=== PATIENT | male | born 1940 | race Caucasian/White ===

== ENCOUNTER 2018-07-27 10:25 | Outpatient (CLI) | payer MEDICAID, MEDICARE ==
[2018-07-27 18:32] LABS: HB2 TOTAL 12.4 g/dL; HEMOGLOBIN A1C 0.59 g/dL; HEMOGLOBIN A1C % 6.5 % (4.6-6.2)
[2018-07-27 19:55] LABS: CREATININE,URINE 105.5 mg/dL; MICROALBUM/CREATININE RATIO,UR 118.5 ug/mg (<30.0); MICROALBUMIN,URINE 12.5 mg/dL (0-300.0)
== END 2018-07-27 10:26 | disposition home or self-care (01) ==
LOC: LAB.F 10:25
PROVIDERS: ATTEND Family Medicine
DX: E11.9 Type 2 diabetes mellitus without complications (principal)
CPT/HCPCS: 36415; 82043; 82570; 83036

== ENCOUNTER 2018-12-19 15:02 | Outpatient (CLI) | payer MEDICARE ==
[2018-12-19 18:43] LABS: ALBUMIN 3.7 g/dL (3.2-5.5); CALCIUM 8.6 mg/dL (8.5-10.3); CREATININE 2.5 mg/dL (0.6-1.2); PHOSPHORUS 2.6 mg/dL (2.5-4.6)
== END 2018-12-19 15:03 | disposition home or self-care (01) ==
LOC: LAB.F 15:02
PROVIDERS: ATTEND Family Medicine
DX: N18.9 Chronic kidney disease, unspecified (principal)
CPT/HCPCS: 36415; 80069

== ENCOUNTER 2018-12-26 14:59 | Outpatient (CLI) | payer MEDICARE | END 2018-12-26 15:00 | disposition home or self-care (01) | LOC: LAB.F 14:59 | PROVIDERS: ATTEND Family Medicine | DX: N18.9 Chronic kidney disease, unspecified (principal) | CPT/HCPCS: 36415 ==

== ENCOUNTER 2018-12-27 13:27 | Outpatient (CLI) | payer MEDICARE ==
[2018-12-27 18:33] LABS: ALBUMIN 3.7 g/dL (3.2-5.5); PHOSPHORUS 2.8 mg/dL (2.5-4.6)
== END 2018-12-27 13:28 | disposition home or self-care (01) ==
LOC: LAB.F 13:27
PROVIDERS: ATTEND Family Medicine
DX: N18.9 Chronic kidney disease, unspecified (principal)
CPT/HCPCS: 80069

== ENCOUNTER 2019-05-19 13:03 | Outpatient (CLI) | payer MEDICARE ==
--- NOTE | 2019-05-22 09:50 | Ultrasound Report ---
Reason: CKD 3 Procedure Date: 05/19/2019 Accession Number: [id number] / [id number] Procedure: US - Retroperitoneal CPT Code: FULL RESULT: EXAM: RENAL ULTRASOUND EXAM DATE: 05/19/2019 01:59 PM. CLINICAL HISTORY: CKD 3. COMPARISON: None. TECHNIQUE: Real-time scanning was performed with static images obtained. FINDINGS: Right Kidney: 10.7 x 6.2 x 5.9 cm. Anechoic cyst with imperceptible wall in the superior pole measures 2.1 x 1.4 x 1.8 cm, without mural nodule or septation. Anechoic cyst with imperceptible wall in the superior pole measures 1.6 x 1.1 x 1.1 cm, without mural nodule or septation. No solid-appearing renal mass. No hydronephrosis. Left Kidney: 10.3 x 6.0 x 4.9 cm. Anechoic cyst with imperceptible wall in the superior pole measures 1.1 x 0.9 x 0.9 cm, without mural nodule or septation. No solid renal mass. No hydronephrosis. Bladder: Bilateral jets seen. The prevoid bladder volume was 224.5 cc. The postvoid bladder volume was 17.3 cc. Mild bladder wall thickening with trabeculation. Other: None. IMPRESSION: 1. Multiple renal cysts. No solid renal mass or hydronephrosis. 2. Mild bladder wall thickening with trabeculation, possible chronic outlet obstruction RADIA
== END 2019-05-19 13:04 | disposition home or self-care (01) ==
LOC: DI 13:03
PROVIDERS: ATTEND Internal Medicine Nephrology
DX: N18.3 Chronic kidney disease, stage 3 (moderate) (principal); Q61.02 Congenital multiple renal cysts
CPT/HCPCS: 76770

== ENCOUNTER 2019-07-03 14:42 | Outpatient (CLI) | payer MEDICARE ==
[2019-07-03 17:55] LABS: BILIRUBIN,URINE NEGATIVE (NEGATIVE); GLUCOSE, URINE (UA) NEGATIVE (NEGATIVE); KETONES,URINE (UA) NEGATIVE (NEGATIVE); LEUKOCYTE ESTERASE, URINE NEGATIVE (NEGATIVE); NITRITE,URINE NEGATIVE (NEGATIVE); OCCULT BLOOD,URINE MODERATE (NEGATIVE); PH,URINE 5.5 PH (5.0-7.5); PROTEIN,URINE 30 mg/dL (NEGATIVE); UROBILINOGEN,URINE 0.2 (NORMAL) E.U./dL (NORMAL)
[2019-07-03 18:01] LABS: ALBUMIN 4.3 g/dL (3.2-5.5); CREATININE 1.9 mg/dL (0.6-1.2); PHOSPHORUS 3.5 mg/dL (2.5-4.6)
[2019-07-03 18:04] LABS: CLARITY,URINE HAZY (CLEAR)
[2019-07-03 18:11] LABS: CREATININE,URINE 87.7 mg/dL; PROTEIN/CREATININE RATIO,URINE 1.3 (<=0.2)
[2019-07-03 18:24] LABS: AMORPHOUS SEDIMENT,UR Marked /LPF; BACTERIA,URINE None Seen /HPF (None Seen); RBC,URINE 0-5 /HPF (0-5); SQUAMOUS EPITHELIAL CELL,UR NONE SEEN (<= Few)
[2019-07-03 18:25] LABS: CASTS, URINE 11-25 Fine Granular /LPF
[2019-07-05 09:02] LABS: COMPLEMENT COMPONENT C3C 150 mg/dL
[2019-07-05 12:06] LABS: COMPLEMENT COMPONENT C4C 40 mg/dL
== END 2019-07-03 14:43 | disposition home or self-care (01) ==
LOC: LAB.S 14:42
PROVIDERS: ATTEND Internal Medicine Nephrology
DX: I12.9 Hypertensive chronic kidney disease with stage 1 through stage 4 chronic kidney disease, or unspecified chronic kidney disease (principal); N18.3 Chronic kidney disease, stage 3 (moderate); E11.9 Type 2 diabetes mellitus without complications
CPT/HCPCS: 36415; 80069; 81001; 82570; 84156; 85651; 86021; 86160

== ENCOUNTER 2024-04-29 17:03 | Emergency (ER) | payer MEDICARE ==
[2024-04-29 17:18] VITALS: BP 141/100; O2SAT 100
--- NOTE | 2024-04-29 17:30 | ED Physician Documentation ---
History of Present Illness - Stated complaint Stated Complaint: LT LEG PX - Chief complaint Chief Complaint: Ext Problem - History obtained from History obtained from: Patient - Additonal information Additional information: Patient is an 84-year-old male presenting to the emergency department with lower back pain radiating down his left leg. 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 He is originally from [place] and has a history of coronary artery disease, hypertension, hyperlipidemia. He is not on any blood thinners. He notes no trauma to his back. Symptoms worsen when he goes from sitting to standing sensation. He has no history of IV drug use. He denies any fevers. He notes no numbness or tingling in his legs only cramping with pain in his calf. He denies any swelling redness or warmth to his legs. No history of DVTs or PEs. He denies any saddle anesthesia no weakness or difficulty walking. He has no history of sciatica. He has seen chiropractor for the symptoms with minimal improvement. He is not taking anything for his pain [id number]. PD PAST MEDICAL HISTORY - Past Medical History Cardiovascular: PR Respiratory: Sleep apnea, CPAP use Endocrine/Autoimmune: None GI: None : None HEENT: Chronic vision loss, Chronic hearing loss Psych: None Musculoskeletal: None Derm: None - Past Surgical History Past Surgical History: Yes Cardiovascular: Coronary stent HEENT: Tonsil/Adenoidectomy - Present Medications Home Medications: Ambulatory Orders Medication Instructions Recorded Confirmed Aspirin [Aspir-Low] 81 mg PO DAILY 03/27/16 03/27/16 Atenolol 25 mg ORAL DAILY 03/27/16 03/27/16 Nitroglycerin [Nitrostat] 0.4 mg SL Q5MIN PRN 03/27/16 03/27/16 Potassium Citrate [Urocit-K] 03/27/16 Rosuvastatin Calcium [Crestor] 03/27/16 Tamsulosin [Flomax] 0.4 mg PO DAILY 03/27/16 03/27/16 Cyclobenzaprine [Flexeril] 10 mg PO TID PRN #20 tablet 04/29/24 Lidocaine Patch 5% [Lidoderm Patch] 1 patch TOP DAILY PRN #10 patch 04/29/24 Naproxen 250 mg PO BID PRN #15 tablet 04/29/24 predniSONE [Deltasone] 20 mg PO [id number] #21 tab 04/29/24 - Allergies Allergies/Adverse Reactions: Allergies Allergy/AdvReac Type Severity Reaction Status Date / Time No Known Drug Allergies Allergy Verified 04/29/24 17:40 - Social History Does the pt smoke?: No Smoking Status: Never smoker Does the pt drink ETOH?: No Does the pt have substance abuse?: No - Immunizations Immunizations are current?: Yes PD ED PE NORMAL - Vitals Vital signs reviewed: Yes - General General: Alert and oriented X 3 - HEENT HEENT: Atraumatic - Neck Neck: Supple, no meningeal sign - Cardiac Cardiac: RRR, No gallop, No rub - Respiratory Respiratory: No respiratory distress, Clear bilaterally - Abdomen Abdomen: Normal bowel sounds, Non tender - Back Back: No CVA TTP, Other (Reproducible lumbar spinous process tenderness as well as left-sided paraspinal process tenderness radiating down left gluteal region. Positive straight leg raise on examination.) - Derm Derm: Normal color, Warm and dry, No rash, Other (No lower leg swelling or pitting edema. Bilateral legs are equal in size.) - Extremities Extremities: No deformity, No calf tenderness / cord (No significant calf swelling pitting edema or warmth or redness to the leg.), Other - Neuro Neuro: Alert and oriented X 3 Eye Opening: Spontaneous Motor: Obeys Commands Verbal: Oriented GCS Score: 15 - Free text exam Free text exam: Left leg: Full range of motion of left leg intact left leg slightly decreased in strength compared to the right leg 4 out of 5. Patient has good pulses DP and PT 2+. Sensation intact and equal bilaterally in L2-L3-L4 and L5 regions. Full range of motion of digits 1 through 5 full range of motion of bilateral ankles and knees. No appreciable pitting edema noted to left leg. Calf size equal bilaterally. Reproducible pain over lumbar region and paraspinal lumbar region. Positive straight leg raise on examination of left leg. Results - Vitals Vitals: Vital Signs - 24 hr 04/29/24 17:08 Temperature 36.8 C Heart Rate 62 Respiratory 18 Rate Blood Pressure 141/100 H O2 Saturation 100 Oxygen O2 Source Room air - Rads (name of study) x-ray lumbar spine Relevant Findings:: EMP independent interpretation of test PD Medical Decision Making - ED course ED course: Patient is a 84-year-old male presenting to the emergency department with left leg pain. His pain starts in the left hip and radiates down the left leg. Symptoms seem to worsen when sitting to standing. 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 He notes no swelling in his leg. He denies any truama to his back or lower leg swelling. X-rays obtained here in the emergency department show degenerative disc disease and arthropathy. There is thoracolumbar dextroscoliosis but no other findings. There is additionally aortic calcific atherosclerosis findings. Patient symptoms consistent with sciatica symptoms given positive straight leg raise no significant swelling good capillary refill and pulses intact to both legs.'s x-ray does show findings of degenerative disc disease and arthropathy. Given symptoms seem to worsen from sitting to standing and no acute trauma, swelling, numbness or tingling, or red flag symptoms. Patient is safe for discharge home at this time. Patient will be discharged home with Flexeril, steroid pack, naproxen and lidocaine patches to help his pain at home. Patient will follow-up with PCP in outpatient setting to ensure resolution of symptoms. Patient instructed to take medications at home and follow-up with PCP in outpatient setting. Patient may need further workup of his pain if it does not resolve. He was instructed to return with any fevers numbness weakness saddle anesthesia changes in color or swelling to distal extremity. Patient understands and is agreeable with this plan. Departure - Departure Disposition: 01 Home, Self Care Clinical Impression: Injury of sciatic nerve at hip and thigh level, left leg, initial encounter, Pain of lower extremity Condition: Good Instructions: ED Strain Muscle Ext Prescriptions: predniSONE [Deltasone] 20 mg PO [id number] #21 tab Cyclobenzaprine [Flexeril] 10 mg PO TID PRN #20 tablet PRN Reason: Spasms Lidocaine Patch 5% [Lidoderm Patch] 1 patch TOP DAILY PRN #10 patch PRN Reason: pain Naproxen 250 mg PO BID PRN #15 tablet PRN Reason: Pain Comments: You were seen here in the emergency department for your left leg pain your workup here in the emergency department showed symptoms most likely secondary to something called sciatica. However if you develop any fevers numbness in your groin region, worsening pain weakness or numbness in your leg return to the emergency department. Additionally you have muscle relaxer called Flexeril. Please do not take this medication while you drive as it will make you sleepy. Follow-up with your PCP in the outpatient setting to ensure resolution of symptoms. Forms: PCP List
[2024-04-29] MEDS: KETOROLAC 15 MG/ML VIAL IM STA (18:17)
[2024-04-29] MEDS: LIDOCAINE PATCH 4% TOP STA (18:18)
[2024-04-29] MEDS: KETOROLAC 15 MG/ML VIAL IVP STA (18:22)
--- NOTE | 2024-04-29 18:53 | XRAY Report ---
PROCEDURE: Lumbar Spine 2-3V INDICATIONS: low back pain TECHNIQUE: 3 view(s) of the lumbar spine were acquired. COMPARISON: None. FINDINGS: Bones: Vertebral body height and alignment is maintained. No suspicious bony lesions. Disc space philly rowing and hypertrophic facet joints noted throughout the exam particularly lower lumbar spine. Ather osclerotic calcification of the abdominal aorta without evidence of aneurysm. Convex right thoracolum bar scoliosis Soft tissues: Overlying bowel gas pattern is normal. No suspicious soft tissue calcifications. IMPRESSION: Degenerative disc disease and arthropathy. Thoracolumbar dextroscoliosis. Aortic calcific atherosclerosis Reviewed by: Hansel Arce MD on 04/29/2024 5:52 PM [email or web address] Approved by: Hansel Arce MD on 04/29/2024 5:52 PM AKDT Station ID: [id number]
[2024-04-29] MEDS: CYCLOBENZAPRINE 10 MG Prepack 2 PO STA (19:38)
== END 2024-04-29 19:47 | disposition home or self-care (01) ==
LOC: ED 17:03
DX: S74.02XA Injury of sciatic nerve at hip and thigh level, left leg, initial encounter (principal); X58.XXXA Exposure to other specified factors, initial encounter
CPT/HCPCS: 72100; 96372; 99283; A9270